=== PATIENT | female | born 1935 | race African-American/Black ===

== ENCOUNTER 2018-11-24 19:35 | Emergency (ER) | payer OTHER ==
[~2018-11-24] VITALS: Ht 170.2 cm; Wt 80.0 kg
[2018-11-24] MEDS ORDERED: ACETAMINOPHEN 325MG TABLET PO ONE (20:30)
[2018-11-24] MEDS ORDERED: CLONIDINE 0.2MG TABLET PO ONE (20:30)
[2018-11-24 20:48] LABS: BASOPHILS % 0.3 % (0.0-2.0); EOSINOPHILS % 0.6 % (0.0-5.0); HEMATOCRIT. 38.6 % (36.0-48.0); HEMOGLOBIN. 13.1 g/dL (12.0-16.0); LYMPHOCYTES % 7.6 % (20.0-50.0); MEAN CORPUSCULAR HEMOGLOBIN 29.5 pg (28.0-32.0); MEAN CORPUSCULAR VOLUME 86.5 fL (81.0-99.0); MEAN PLATELET VOLUME 9.2 fl (7.4-10.4); MONOCYTES % 4.4 % (2.0-8.0); NEUTROPHILS % 87.1 % (40.0-76.0); PLATELET 157 x1000/uL (130-400); RED BLOOD CELL COUNT 4.46 mill/uL (4.2-5.4); RED CELL DISTRIBUTION WIDTH 12.8 % (11.6-14.6)
[2018-11-24 20:52] LABS: CHLORIDE 103 mEq/L (98-107)
[2018-11-25 01:30] VITALS: BP 145/71
== END 2018-11-25 01:30 | disposition home or self-care (01) ==
LOC: ER 20:34
DX: I73.9 Peripheral vascular disease, unspecified (principal)
CPT/HCPCS: 36415; 93970; 99284